=== PATIENT | female | born 1935 | race Caucasian/White ===

== ENCOUNTER 2023-07-11 16:23 | Emergency (ER) | payer MEDICARE ==
[~2023-07-11] VITALS: Ht 167.6 cm; Wt 68.2 kg
[~2023-07-11 16:23] MED LIST: ALEN70TA80 PO; FURO40TA4 PO; LISI10TA27 PO; MULT-227 PO; PANT-47 PO; POTA-366 PO; RIVA20TA PO; SIMV-45 PO
[2023-07-11] MEDS ORDERED: ondansetron/PF 4mg/2ml inj IV ONE (17:25)
[2023-07-11] MEDS ORDERED: morphine 4 MG/ML inj SYRINge IV ONE (17:25)
[2023-07-11] MEDS ORDERED: TETanus/Pertussis (Acell)/Diphther VAC/PF (Tdap-Adult) 0.5ml syringe IMVAC ONE (17:25)
[2023-07-11] MEDS ORDERED: furosemide 10 MG/1 ML 10ml inj IV ONE (17:25)
[2023-07-11 17:58] LABS: EOSINOPHILS # (AUTO) 0.2 X10'3 (0-0.9); EOSINOPHILS % (AUTO) 3.8 % (0-6); HEMATOCRIT 32.5 % (35.0-45.0); HEMOGLOBIN 10.6 g/dl (12.0-16.0); LYMPHOCYTES # (AUTO) 1.3 X10'3 (1.1-4.8); LYMPHOCYTES % (AUTO) 25.7 % (21-51); MEAN CORPUSCULAR HEMOGLOBIN 29.4 PG (27.0-31.0); MEAN CORPUSCULAR HGB CONC 32.7 g/dL (33.0-36.5); MEAN CORPUSCULAR VOLUME 89.9 FL (78-98); MEAN PLATELET VOLUME 9.2 FL (7.4-10.4); MONOCYTES # (AUTO) 0.4 X10'3 (0-0.9); MONOCYTES % (AUTO) 8.8 % (2-12); NEUTROPHILS # (AUTO) 3.1 X10'3 (1.8-7.7); NEUTROPHILS % (AUTO) 60.7 % (42-75); PLATELET COUNT 183 X10'3 (140-440); RED BLOOD COUNT 3.61 X10'6 (4.20-5.60)
[2023-07-11] MEDS ORDERED: HYDROcodone/acetaminophen 5mg/325mg tablet PO ONE (18:05)
[2023-07-11] MEDS: ceFAZolin/D5W- 1GM premix 50 ML IV SCH ×2 (18:28→22:15)
[2023-07-11 19:03] LABS: ALANINE AMINOTRANSFERASE 12 U/L (12-78); ALBUMIN 3.8 G/DL (3.4-5.0); ALBUMIN/GLOBULIN RATIO 0.9 (1.1-1.5); ALKALINE PHOSPHATASE 67 IU/L (46-116); ANION GAP 10 (8-16); ASPARTATE AMINO TRANSFERASE 19 U/L (10-37); BILIRUBIN,TOTAL 0.8 MG/DL (0.1-1.0); BLOOD UREA NITROGEN 24 MG/DL (7-18); BUN/CREATININE RATIO 16.6 (10.0-20.0); CALCIUM 9.3 MG/DL (8.5-10.1); CHLORIDE 103 MMOL/L (99-107); CREATININE 1.45 MG/DL (0.40-0.90); GLUCOSE 112 MG/DL (70-104); POTASSIUM 4.6 MMOL/L (3.5-5.1); SODIUM 138 MMOL/L (135-145); TOTAL CARBON DIOXIDE 25.5 MMOL/L (24-32); TOTAL PROTEIN 7.9 G/DL (6.4-8.2); eCRCL 25 ML/MIN; eGFR 34 ML/MIN
[2023-07-11 19:06] LABS: ETHANOL < 10 MG/DL (<10)
[2023-07-11 19:30] LABS: BILIRUBIN,URINE NEGATIVE (Neg); CLARITY,URINE CLEAR (Clear); COLOR,URINE STRAW (Yellow); GLUCOSE, URINE NEGATIVE (Neg); KETONES,URINE NEGATIVE (Neg); LEUKOCYTE ESTERASE ,URINE NEGATIVE (Neg); NITRITES, URINE NEGATIVE (Neg); OCCULT BLOOD,URINE NEGATIVE (Neg); PH,URINE 6.5 (4.8-8.0); PROTEIN,URINE NEGATIVE (Neg); UROBILINOGEN,URINE 0.2 E.U/dL (0.2-1.0)
[2023-07-11 19:36] LABS: UA COLLECTION TYPE CLN CATCH MIDSTREAM
[2023-07-11] MEDS ORDERED: LIDOcaine 1%/PF 5ML 10 MG/ML VIAL SQ ONE (20:20)
[2023-07-11] MEDS ORDERED: HYDROcodone/acetaminophen 5mg/325mg tablet PO STA (21:11)
[2023-07-11] MEDS ORDERED: CEPH-585 PO (21:41)
[2023-07-11] MEDS ORDERED: HYDR-3965 PO (21:41)
[2023-07-11 22:48] VITALS: BP 152/60; PULSE 72; RESP 16; TEMP 97.7; O2SAT 98
== END 2023-07-11 22:53 | disposition home or self-care (01) ==
LOC: ER 16:24
DX: S01.81XA Laceration without foreign body of other part of head, initial encounter (principal); S06.2XAA Diffuse traumatic brain injury with loss of consciousness status unknown, initial encounter; S60.211A Contusion of right wrist, initial encounter; I48.91 Unspecified atrial fibrillation; E78.00 Pure hypercholesterolemia, unspecified; I11.0 Hypertensive heart disease with heart failure; I50.9 Heart failure, unspecified; Z90.710 Acquired absence of both cervix and uterus; Z88.8 Allergy status to other drugs, medicaments and biological substances; Z79.899 Other long term (current) drug therapy; Z23 Encounter for immunization; W01.0XXA Fall on same level from slipping, tripping and stumbling without subsequent striking against object, initial encounter; Y93.89 Activity, other specified; Y92.89 Other specified places as the place of occurrence of the external cause; Y99.8 Other external cause status
CPT/HCPCS: 12011; 36415; 70450; 71045; 72125; 73110; 80053; 80320; 81003; 84484; 85025; 90471; 90715; 93005; 96365; 96366; 96375; 99285; A6222; J0690; J1940; J7030; 99284; A4565; A6258; A6446; A6449